=== PATIENT | female | born 1990 | race Caucasian/White ===

== ENCOUNTER 2024-07-29 01:40 | Emergency (ER) | payer OTHER, SELFPAY ==
[2024-07-29 01:41] VITALS: BP 155/104; PULSE 66; RESP 16; TEMP 36.6; O2SAT 98; BMI 43.7
[2024-07-29 01:46] VITALS: BP 155/104; PULSE 72; RESP 18; TEMP 36.6; O2SAT 98
--- NOTE | 2024-07-29 01:58 | CT_ITS ---
INDICATION: right flank pain EXAMINATION: CT ABDOMEN AND PELVIS WITHOUT CONTRAST - CT Abdomen And Pelvis W/O Contrast Injection TECHNIQUE: Helically acquired images were obtained of the abdomen and pelvis without oral or IV contrast. A radiation dose optimization technique was used for this scan. IV Contrast dosage and agent: None. Oral contrast: None. RADIATION DOSAGE (If Supplied By Facility): CTDIvol = ( 23.20 ) mGy, DLP = ( 1176.75 ) mGycm COMPARISON: No relevant prior comparison study available FINDINGS: LOWER CHEST: Lung bases are clear. No cardiomegaly or pericardial effusion. LIVER: The liver is normal in size, shape, and attenuation. No focal mass. GALLBLADDER AND BILIARY TREE: The gallbladder is normally distended. No gallstones. No gallbladder wall thickening or edema. No intra- or extrahepatic biliary ductal dilation. PANCREAS: No focal cystic or solid mass. SPLEEN: Normal size without focal cystic or solid mass. ADRENAL GLANDS: No nodules. KIDNEYS AND URETERS: Normal renal size and position. Mild right hydroureteronephrosis with perinephric and periureteral fat stranding. There is a 0.2 cm calculus at the right ureterovesicular junction. There is an additional nonobstructing right lower pole 0.3 cm calculus. PERITONEUM: No ascites or free air. No other fluid collection. BOWEL: The stomach is unremarkable. Normal caliber small bowel. No obstruction. No colonic wall thickening or inflammatory changes. No evidence of acute appendicitis. LYMPH NODES: No enlarged mesenteric or retroperitoneal lymph nodes. VESSELS: Aorta is non-dilated. URINARY BLADDER: Unremarkable. REPRODUCTIVE ORGANS: Anteverted uterus. Exophytic mass extends from the uterine fundus, suspicious for a fibroid. This measures 5.1 x 5.9 x 6.7 cm. ABDOMINAL WALL: No discrete abdominal or pelvic wall hernia. BONES: No acute or suspicious osseous abnormality. CT/Abdomen/Pelvis without Cont IMPRESSION: Mild right hydroureteronephrosis with a 0.2 cm calculus at the ureterovesicular junction. Additional nonobstructing right renal calculus. Exophytic mass from the uterus suggestive of a fibroid. Electronically Signed: Alan Carvajal MD at 3:54 EDT ,
[2024-07-29] MEDS: Ondansetron 4 MG/2 ML Vial IV (02:03)
[2024-07-29] MEDS: 0.9% Normal Saline (1000mL) 1,000 ML 999 ML IV (02:03)
[2024-07-29] MEDS: Morphine 4 MG/ML Syringe IV (02:04)
[2024-07-29 02:06] LABS: Absolute Lymphocyte Count 4.78 X10^3/uL (0.83-4.51); Absolute Neutrophil Count 8.9 X10^3/uL (2.0-7.7); Basophil# 0.08 X10^3/uL; Basophil% 0.5 % (0-1); Eosinophil# 0.16 X10^3/uL; Hematocrit 36.5 % (37-47); Hemoglobin 12.3 g/dL (12.0-15.0); Lymphocyte # 4.78 X10^3/ul (0.83-4.51); Lymphocyte % 30.7 % (19-41); Mean Corp Hgb Conc 33.7 g/dL (32-36); Mean Corpuscular Hgb 28.7 pg (27.0-32.0); Mean Corpuscular Volume 85.1 fL (81-99); Mean Platelet Vol. 10.1 fl (6.2-12.0); Monocyte# 1.62 X10^3/uL; Monocyte% 10.4 % (0-10); NRBC Flagged by Analyzer 0 % (0-5); Neutrophil # 8.87 X10^3/uL (2.7-7.7); Neutrophil % 56.9 % (47-70); POSITIVE DIFFERENTIAL YES; Platelet Count 308 K/mm3 (150-450); RBC Distribution Width CV 12.5 % (11.6-14.6); RBC Distribution Width SD 38.3 fl (35.1-43.9); Red Blood Count 4.29 M/mm3 (4.2-5.4); White Blood Count 15.6 K/mm3 (4.4-11.0)
[2024-07-29 02:11] LABS: Differential Indicated SCAN CRITERIA MET
[2024-07-29 02:15] LABS: Internal QC Validated? YES +Cl - CLEAR BKGD; Pregnancy, Serum, hCG Quali. NEGATIVE Negative
[2024-07-29 02:19] LABS: Anion Gap 6 (5-15); BUN 15 mg/dL (7-18); BUN/Creat Ratio 16.1 RATIO (10-20); Calcium,Total 8.3 mg/dL (8.5-10.1); Chloride 109 mmol/L (98-107); Creatinine, Serum 0.93 mg/dL (0.55-1.02); EST Glomerular Filtration Rate 73 mL/min (>60); Est Glom Filt Rate - Afr Amer 88 mL/min (>60); Estimated Creatinine Clearance 102.48 ml/min; Glucose 145 mg/dL (74-106); Potassium 3.3 mmol/L (3.5-5.1); Sodium Level 138 mmol/L (136-145)
[2024-07-29 02:46] VITALS: BP 154/87; PULSE 54; RESP 18; TEMP 36.6; O2SAT 97
[2024-07-29 02:50] LABS: Differential Comment SCANNED
[2024-07-29 03:00] VITALS: BP 154/87; PULSE 64; RESP 20; TEMP 36.6; O2SAT 97
[2024-07-29 03:04] LABS: Bacteria 0 SEEN /hpf (None Seen); Mucous, Urine 0 SEEN /hpf (<or=2+); Red Blood Cells-Urine 0 SEEN /hpf (0-5); Squamous Epithelial Cells - UA 0 SEEN /hpf (5-10); White Blood Cells 0 SEEN /hpf (0-5)
[2024-07-29 03:06] LABS: Glucose, Dipstick 100 mg/dl (Normal); Ketone-Dipstick Negative (Negative); Leukocyte Esterase-Dipstick Negative /ul (Negative); Nitrite-Dipstick Negative (Negative); Occult Blood-Urine 10 /ul (Negative); Protein-Dipstick Negative (Negative); Specific Gravity, Urine 1.015 (1.002-1.030); Urine Bilirubin Dipstick Negative (Negative); Urine Urobilinogen Normal (Normal)
[2024-07-29] MEDS: Ketorolac 30 MG/ML Syringe IV (03:09)
[2024-07-29 03:16] LABS: Color, Urine Yellow (Yellow); Urine Clarity Clear (Clear)
[2024-07-29 03:40] VITALS: BP 158/83; PULSE 58; RESP 18; O2SAT 98
--- NOTE | 2024-07-29 04:12 | EX.ED.DYSGE1 ---
HPI History of Present Illness Chief Complaint: Abd Pain Informant: patient and spouse/S.O. Narrative Narrative: Patient is a 33-year-old female who reports no past medical history. She states that she went to bed feeling normal and then awoke with sharp pain in the right flank wrapping towards her groin. She denies any recent trauma or excessive activity. She denies any loss of bowel or bladder control or IV drug use. She states there has been no hematuria or dysuria. However he tried [id number] medications without any symptom improvement and therefore comes in for evaluation [facility] Medical History no medical history Home Medications ?Medication ?Instructions ?Recorded ?Last Taken ?Type ketorolac 10 mg tablet 10 mg PO 4X/DAY PRN pain 5 days 07/29/24 Unknown Rx #20 tabs ondansetron 4 mg disintegrating 4 mg PO TID PRN nausea and 07/29/24 Unknown Rx tablet vomiting #21 tabs oxycodone-acetaminophen 5 mg-325 1 tab PO Q6H PRN pain 3 days #12 07/29/24 Unknown Rx mg tablet (Percocet) tabs tamsulosin 0.4 mg capsule (Flomax) 0.4 mg PO DAILY 14 days #14 caps 07/29/24 Unknown Rx Allergy/AdvReac Type Severity Reaction Status Date / Time No Known Allergies Allergy Verified 07/29/24 01:46 Social History Smoking Status: Never smoker [facility] ED Constitutional Constitutional ED: Denies chills or fever(s) ENT ENT ED: Denies sore throat Cardiovascular Cardiovascular: Denies chest pain Respiratory/Chest Respiratory/Chest: Denies cough or dyspnea Gastrointestinal Gastrointestinal: Reports abdominal pain and nausea; Denies diarrhea or vomiting Genitourinary Genitourinary ED: Denies dysuria or hematuria Musculoskeletal Musculoskeletal: Reports back pain Integumentary Denies rash Neurologic Neurologic: Denies headache(s) Hematologic/Lymphatic Hematologic/Lymphatic: Denies easy bleeding or easy bruising EXAM Physical Exam Const Vital Signs: 07/29/24 01:41 07/29/24 01:46 07/29/24 02:46 Temperature 97.9 F 97.9 F 97.8 F Temperature Source Oral Oral Oral Pulse Rate 66 72 54 L Respiratory Rate 16 18 18 Blood Pressure 155/104 H 155/104 H 154/87 H Blood Pressure Mean 121 121 109 Pulse Ox 98 98 97 Oxygen Delivery Method Room Air Room Air Room Air 07/29/24 03:00 Temperature 97.8 F Temperature Source Oral Pulse Rate 64 Respiratory Rate 20 H Blood Pressure 154/87 H Blood Pressure Mean 109 Pulse Ox 97 Oxygen Delivery Method Room Air Positive well nourished, well developed and obese General Appearance ED: well developed; Negative for pallor Nutritional Appearance: obese HEENT HEENT Narrative: Normocephalic atraumatic Eyes PERRL and EOMs intact bilaterally General Eye ED: Negative for scleral icterus Neck supple Resp normal respiratory effort and clear to auscultation bilaterally Cardio regular rate and regular rhythm Rate: other Other Details: Heart is regular rate and rhythm without murmurs rubs or gallop Radial and carotid pulses are equal and symmetric GI non-distended and no masses GI Narrative: Abdomen is soft and nondistended with normal active bowel sound. There is pain on palpation along the right lateral abdomen diffusely without voluntary guarding or rigidity. No pulsatile mass or fluid wave. No pain over McBurney's point. Negative Good sign. Auscultation: normoactive bowel sounds Palpation: soft Back/Spine Back/Spine Narrative: Positive right CVA pain noted Extremity normal to inspection Neuro oriented x3, CN's II-XII intact bilaterally and no sensory deficits noted Sensorium / Orientation: alert Motor Exam: strength 5/5 throughout Psych mental status grossly normal Skin no rashes or lesions noted General Skin Exam: Negative for jaundice or pallor MDM MDM MDM Narrative Medical decision making narrative: Patient arrived to the ER hypertensive but otherwise with stable vitals. She reported sudden onset of right-sided flank pain that was sharp in nature without trauma or excessive activity. Differential diagnosis is for UTI versus pyelonephritis versus kidney stone versus biliary colic versus acute cholecystitis versus complication. As kidney stone is the most likely diagnosis basic blood work with urine sample and noncontrast CT were obtained. Patient's white count is elevated at 15.6 but this is most likely stress response as urine shows no sign of infection. Patient also has no signs of acute kidney injury but CT scan does confirm a 2 mm right distal ureter stone which correlates with her history and exam. After receiving IV fluids morphine and Toradol she had resolution of pain. Therefore at this time the patient does not have acute kidney injury she does not have urosepsis her pain has been controlled and therefore there is no need for admission or emergent urology consultation and she is otherwise safe for discharge. History & Record Review Discussion w/independent historian: Patient and Significant other Lab Data Attestation: I reviewed the patient's lab results. Labs: Laboratory Results - last 24 hr 07/29/24 07/29/24 01:49 03:00 WBC 15.6 H RBC 4.29 Hgb 12.3 Hct 36.5 L MCV 85.1 MCH 28.7 MCHC 33.7 RDW Std Deviation 38.3 RDW Coeff of Valerie 12.5 Plt Count 308 MPV 10.1 Immature Gran % (Auto) 0.500 Neut % (Auto) 56.9 Lymph % (Auto) 30.7 [place] % (Auto) 10.4 H Eos % (Auto) 1.0 Baso % (Auto) 0.5 Absolute Neuts (auto) 8.9 H Absolute Lymphs (auto) 4.78 H Nucleated RBC % 0 Differential Comment SCANNED Diff Path Review May foll Sodium 138 Potassium 3.3 L Chloride 109 H Carbon Dioxide 23.0 Anion Gap 6 BUN 15 Creatinine 0.93 Estim Creat Clear Calc 102.48 Est GFR (MDRD) Af Amer 88 Est GFR (MDRD) Non-Af 73 BUN/Creatinine Ratio 16.1 Glucose 145 H Calcium 8.3 L Serum , Qual NEGATIVE Urine Color Yellow Urine Clarity Clear Urine pH 7.0 Ur Specific Delta 1.015 Urine Protein Negative Urine Glucose (UA) 100 H Urine Ketones Negative Urine Occult Blood 10 H Urine Nitrite Negative Urine Bilirubin Negative Urine Urobilinogen Normal Ur Leukocyte Esterase Negative Urine RBC 0 SEEN Urine WBC 0 SEEN Ur Squamous Epith Cells 0 SEEN Urine Bacteria 0 SEEN Urine Mucus 0 SEEN Radiography Diagnostic Testing: Clinical Impression(s) from Imaging Studies Abdomen/Pelvis CT 07/29/24 01:58 IMPRESSION: Mild right hydroureteronephrosis with a 0.2 cm calculus at the ureterovesicular junction. Additional nonobstructing right renal calculus. Exophytic mass from the uterus suggestive of a fibroid. Electronically Signed: Alan Carvajal MD at 3:54 EDT , Discharge Plan Triage Chief Complaint: Abd Pain ED Provider: Marky Lala Dx/Rx/DC Orders Clinical Impression: Kidney stone, Renal colic, Hypertension Instructions: ED Kidney Stone with Pain Prescriptions: New ondansetron 4 mg tablet,disintegrating 4 mg PO TID PRN (Reason: nausea and vomiting) Qty: 21 0RF tamsulosin [Flomax] 0.4 mg capsule 0.4 mg PO DAILY 14 Days Qty: 14 0RF ketorolac 10 mg tablet 10 mg PO 4X/DAY PRN (Reason: pain) 5 Days Qty: 20 0RF oxycodone-acetaminophen [Percocet] 5-325 mg tablet 1 tab PO Q6H PRN (Reason: pain) 3 Days Qty: 12 0RF Primary Care Provider: Care Physician,No Primary Referrals: Azeb Richmond MD [Med Staff - Active Staff] - Care Physician,No Primary [Primary Care Provider] - Activity Restrictions/Additional Instructions: Please return to the ER if you develop a fever over 100.4 or your pain is not controlled with the prescribed medication. Otherwise keep yourself well-hydrated and follow-up with urology for further care. Print Language: Maldivian Disposition Disposition: Home, Self Care
[2024-07-29 04:33] VITALS: BP 141/75; PULSE 58; RESP 18; TEMP 36.6; O2SAT 98
[2024-07-29] MEDS: oxyCODONE 5 MG Tablet 10 MG PO (04:36)
[2024-07-29 10:23] LABS: Pathologist Review Reviewed
== END 2024-07-29 04:45 | disposition home or self-care (01) ==
PROVIDERS: Emergency Provider Emergency Medicine; Visit Provider Emergency Medicine
DX: N13.2 Hydronephrosis with renal and ureteral calculous obstruction (principal); N23 Unspecified renal colic; E66.9 Obesity, unspecified
CPT/HCPCS: 74176; 80048; 81001; 84703; 85025; 96361; 96374; 96375; 96376; 99283; A4216; J2405